=== PATIENT | male | born 1975 | race Caucasian/White ===

== ENCOUNTER 2020-10-29 07:58 | Outpatient (REF) | payer OTHER, SELFPAY ==
--- NOTE | ~2020-10-29 | XR_ITS ---
EXAMINATION: XR BOTH KNEES AP STANDING XR RIGHT KNEE, 2 VIEWS CLINICAL INFORMATION: Pain. COMPARISON: None. TECHNIQUE: Standing AP view of both knees and lateral and sunrise views of the right knee. FINDINGS: Right Knee: Mild medial and patellofemoral compartment joint space narrowing. Tricompartmental marginal osteophytes and chondrocalcinosis. No acute fracture or dislocation. Patellofemoral subchondral cystic change. Trace joint effusion. Left Knee: Mild medial compartment joint space narrowing. Medial and lateral compartment chondrocalcinosis and small marginal osteophytes. No osseous erosion. XR/XR knee RT 3V IMPRESSION: RIGHT KNEE: [id number]-dk-[id number] tricompartmental osteoarthritis and chondrocalcinosis. Trace joint effusion. LEFT KNEE: Mild medial and lateral compartment osteoarthritis and chondrocalcinosis.
--- NOTE | ~2020-10-29 | XR_ITS ---
EXAMINATION: XR BOTH KNEES AP STANDING XR RIGHT KNEE, 2 VIEWS CLINICAL INFORMATION: Pain. COMPARISON: None. TECHNIQUE: Standing AP view of both knees and lateral and sunrise views of the right knee. FINDINGS: Right Knee: Mild medial and patellofemoral compartment joint space narrowing. Tricompartmental marginal osteophytes and chondrocalcinosis. No acute fracture or dislocation. Patellofemoral subchondral cystic change. Trace joint effusion. Left Knee: Mild medial compartment joint space narrowing. Medial and lateral compartment chondrocalcinosis and small marginal osteophytes. No osseous erosion. XR/XR knee standing BI IMPRESSION: RIGHT KNEE: Atfn-yb-naemwaot tricompartmental osteoarthritis and chondrocalcinosis. Trace joint effusion. LEFT KNEE: Mild medial and lateral compartment osteoarthritis and chondrocalcinosis.
== END 2020-10-29 07:59 | disposition home or self-care (01) ==
LOC: HO.HOSX 07:58
PROVIDERS: Visit Provider Physician Assistant
DX: M11.261 Other chondrocalcinosis, right knee (principal)
CPT/HCPCS: 73562; 73565

== ENCOUNTER 2020-11-01 10:42 | Outpatient (RCR) | payer OTHER, SELFPAY ==
--- NOTE | 2020-11-01 13:42 | MHC.PT.EP ---
[facility] [place] Office [place] Office [place] Office [address] [phone] F: [phone] F: [phone] F: [phone] F: [phone] Physical Therapy Plan of Care Date of Evaluation: Date of Surgery: meniscus surgery when he was 19 Diagnosis: OA R knee Assessment: Pt is a 45/yo male referred to PT for eval/treat of OA of his R knee. Upon eval/examination, signs and symptoms presented are consistent with R knee dysfunction resulting in decreased ability and tolerance for WB activities such as standing, squatting, negotiating stairs, and ambulating for duration, decreased tolerance for sitting for duration, decreased ability to black pickler objects off of the floor, decreased ability to perform light and heavy household/recreational activities, decreased ability to perform ADLs such as dressing and putting on shoes and socks, difficulty with bed mobility, and disrupted sleep. Functional limitations mentioned above are secondary to restricted R knee ROM, decreased R knee strength, TTP of suprapatellar region and med/lat aspect of R knee, PMH of R knee meniscus surgery, gait deviation, non-pitting edema of R knee, and pain. Pt is deemed appropriate to receive skilled PT to address his physical impairments and improve his functional abilities. Frequency and Duration: The patient will be seen 1x every 2 wk for total of 3 Short Term Goals: Initiate HEP w/ evidence of compliance pt will reports pain less than 2/10 at rest Alf Goals: pt will be able to negotiate 1 flight of sitars w/ mod to little difficulty pt will be able to ambulate for 1 mile w/ mod to little difficulty pt will improve his LEFI score by 2 increment 2 JENNIFER and MCID; initial score 20/80. Treatment Plan: Modalities to reduce pain, spasms and effusion. Manual therapy to restore motion and function. Therapeutic exercise to improve strength and flexibility. Neuromuscular re-education for posture and balance. Therapeutic activities to return to functional activities of daily living. Electronically signed by: donell Huerta PT Please sign and return to therapist. Thank you for your referral.
--- NOTE | 2021-06-25 09:27 | MHC.PT.DC ---
[facility] [place] Office [place] Office [place] Office [address] Aniket Limon 140 [facility] [phone] F: [phone] F: [phone] F: [phone] F: [phone] Physical Therapy Discharge Report Diagnosis: OA R knee Date of Surgery: meniscus surgery when he was 19 Date of Evaluation: 11/01/20 Date of Discharge: 06/25/21 Treatments to Date: Cancellations to Date: No Shows to Date: Discharge Status: Patient Elected to Stop Discharge Summary: Patient evaled and never returned to PT. DC to HEP Electronically signed by: Shanthi Mak PT Please sign and return to therapist. Thank you for your referral.
== END 2021-06-25 09:27 | disposition home or self-care (01) ==
LOC: HO.PTCHIC 10:42
PROVIDERS: Visit Provider Physician Assistant
DX: M17.11 Unilateral primary osteoarthritis, right knee (principal)
CPT/HCPCS: 97110; 97161

== ENCOUNTER 2021-02-23 07:56 | Outpatient (REF) | payer OTHER, SELFPAY ==
[2021-02-23 08:42] LABS: Binax Now Covid-19 Ag Negative (Negative)
[2021-02-23 08:44] LABS: Binax Internal Control QC Valid; Binax Lot number: 9864
== END 2021-02-23 07:57 | disposition home or self-care (01) ==
LOC: HO.LAB 07:56
PROVIDERS: Visit Provider Internal Medicine
DX: Z20.822 Contact with and (suspected) exposure to COVID-19 (principal)
CPT/HCPCS: 36415; C9803

== ENCOUNTER 2024-04-26 12:32 | Outpatient (AMB) | payer OTHER, SELFPAY ==
--- NOTE | 2024-04-26 12:37 | A.OFFPC_ITS ---
Vital Signs 04/26/24 12:38 Height 5 ft 10.47 in Weight 320 lb 4 oz BMI 45.3 BP 130/78 Blood Pressure Location Lt brachial Position Sitting Respiration 20 Pulse 68 Pulse Source Pulse Oximeter Temp 99.4 F Temp Source Oral Pulse Oximetry (%) 95 Oxygen Delivery Method Room Air Intake Visit Reasons: Establish Care Intake Note: Patient is a new patient here to establish care. Transferring care from [place] [facility]. Medical records have been been requested and have been received. Medical Laboratory Scientist Required: No Accompanied by: Self / Same As Patient Allergies apple Allergy (Mild, Verified 04/26/24 13:13) Swelling naproxen Allergy (Unknown, Verified 04/26/24 13:13) stomach upset bee sting Allergy (Unknown, Uncoded 04/26/24 13:13) anaphylaxis Medication List - Last Reconciled 04/26/24 by MALLORY Noguera No Known Home Meds Tobacco use date assessed: 04/26/24 Dental Screening Dental Screen Date: 04/26/24 Did you have a dental visit in the last 12 months?: No Did you have a dental problem in the last 6 months where you did not have access to dental care?: No HPI Establish Care HPI Details Patient is a 48-year-old male presenting to establish care in order to 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 The patient c/o left hand pinky-numbness in the mornings, periodically, gets better as the days go on- might be due to some form of compression while the patient sleeps-will monitor for now. Right knee surgery (meniscus repair he was 19 years old), Reports lumps on the his body (particular in his upper and mid back) reports that he was told that they are fatty tissues. Question lypoma or dermoid cyst. reports that they does not bother him.-consider getting a getting a upper back xray to further evaluate. The patient reports that he would not want them surgical removed Medications:n/a Family HX: father Parkinson's disease, mother- neuropathy, DM, PFSH Medical History (Updated 04/26/24 @ 23:12 by MALLORY Noguera) CPAP (continuous positive airway pressure) dependence Lumps on the skin HAN (obstructive sleep apnea) Surgical History History of surgical removal of pilonidal cyst H/O lateral meniscus repair of right knee Family History Mother Diabetes Neuropathy Respiratory abnormality, unspecified Father Parkinson disease Son No problems noted. 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 1. Little interest or pleasure in doing things: not at all 2. Feeling down, depressed, or hopeless: not at all 3. Trouble falling or staying asleep, or sleeping too much: not at all 4. Feeling tired or having little energy: not at all 5. Poor appetite or overeating: not at all 6. Feeling bad about yourself - or that you are a failure or have let yourself or your family down: not at all 7. Trouble concentrating on things, such as reading the newspaper or watching television: not at all 8. Moving or speaking so slowly that other people could have noticed. Or the opposite - being so fidgety or restless that you have been moving around a lot more than usual: not at all 9. Thoughts that you would be better off or of hurting yourself in some way: not at all Total score: 0 Depression Screening Interpretation: Negative Depression Screening Done: Yes 24010 - PHQ-9 Billing: Yes Source: Developed by Drs. Raj Matson, Sindy Turk, Juan M Lemus and colleagues, with an educational tita from [employer]. Thrive Questionnaire Date Thrive assessed: 04/26/24 I am a: Patient What is your living situation today?: I have a steady place to live Within the past 12 months, did the food you bought not last and you didn't have the money to get more?: Never true Within the past 12 months, did you worry whether your food would run out before you got money to buy more?: Never true Do you have trouble paying for medicines?: No Do you have trouble getting transportation to medical appointments?: Yes Do you have trouble paying your heating and electricity bill?: No Do you have trouble taking care of your child, family member or friend?: No Do you have trouble with day-to-day activities such as bathing, preparing meals, shopping, managing finances, etc.?: No Are you currently unemployed and looking for a job?: No Are you interested in more education?: No Please select the resources that you would like help with: Transportation Currently or been in a relationship where the following occur: No concerns reported THRIVE Score: 1 AUDIT C Alcohol Use Questionnaire (AUDIT-C) 1. How often do you have a drink containing alcohol?: Monthly or less 2. How many drinks containing alcohol do you have on a typical day when you are drinking?: 1 or 2 3. How often do you have six or more drinks on one occasion?: Never Total Score: 1 DELMY-7 AMB Questionnaire DELMY-7 Date DELMY - 7 assessed: 04/26/24 Feeling nervous, anxious, or on edge: 0 = Not at all Not being able to stop or control worryin = Not at all Worrying too much about different things: 0 = Not at all Trouble relaxin = Not at all Being so restless that it is hard to sit still: 0 = Not at all Becoming easily annoyed or irritable: 0 = Not at all Feeling afraid as if something awful might happen: 0 = Not at all Total DELMY-7 score (0-4 normal; 5-9 mild; 10-14 moderate; 15-21 severe): 0 Source: Developed by Sindy Mays Kurt Kroenke and colleagues, with an educational tita from [employer]. DELMY-7 Assessment Billing DELMY-7 Assessment Tool: DELMY-7 Assessment 48299 Review of Systems Const Details: Denies chills, Denies fatigue, Denies fever(s), Denies headache(s) and Denies weakness HEENT Denies change in vision, Denies dizziness, Denies headache(s), Denies hearing loss, Denies nasal congestion, Denies sinus pain, Denies sinus pressure and Denies sore throat Card Denies chest pain, Denies lightheadedness, Denies dyspnea and Denies other (palpitations) Resp Denies cough, Denies dyspnea and Denies wheezing GI Denies abdominal pain, Denies melena, Denies hematochezia, Denies change in bowel habits, +dyspepsia( reports that it has been much better since he started using his CPAP and Denies nausea Denies hematuria and Denies dysuria Musc Denies abnormal gait, Denies myalgias, Denies arthralgias, Denies numbness and Denies tingling Skin/Breast Denies rash, Denies unusual bruising and Denies wounds Reports lumps to upper and mid back Neuro Denies abnormal gait, Denies dizziness, Denies headache(s), Denies memory loss, +numbness (left pinky in the mornings and gets better throughout the day), Denies Sensory deficit (Neuro), Denies tingling and Denies weakness Psych Denies anxiety, Denies depression and Denies memory loss Endo Denies cold intolerance, Denies fatigue, Denies heat intolerance, Denies polydipsia and Denies polyuria Yosvany/Lymph Denies easy bleeding and Denies easy bruising Aller/Immun Denies wheezing Physical exam (Primary Care) Vital Signs: Last Vital Signs Temp 99.4 F 04/26/24 12:38 Pulse 68 04/26/24 12:38 Resp 20 04/26/24 12:38 BP 130/78 04/26/24 12:38 Pulse Ox 95 04/26/24 12:38 Oxygen Delivery Method Room Air 04/26/24 12:38 BMI result Body Mass Index 45.3 Tobacco/Smoking Status: Tobacco use Status Tobacco use date assessed 04/26/24 04/26/24 12:41 Patient Tobacco Use Status Current everyday Tobacco 04/26/24 13:01 Tobacco use type Cigarette 04/26/24 13:01 e-Cigarette/Vaping Use Never Used 04/26/24 13:01 PHQ-9: PHQ-9 Score PHQ-9: Total score 0 04/26/24 13:26 Depression Screening Interpretation: Negative Thrive Assessment: Date of Thrive Assessment Date Thrive assessed 04/26/24 04/26/24 12:41 Currently or been in a relationship where the following occur: No concerns reported Const Other: General: no acute distress, well developed, alert and awake Nutritional Appearance: well nourished Orientation/consciousness: patient oriented x3 HENMT Head: Yes normocephalic and Yes atraumatic Ears: hearing grossly normal bilaterally and TM's normal bilaterally General nose exam: Normal external nose present and Normal nares present Mouth: Normal oral and palatal mucosa present and moist mucous membranesl Throat: Yes oropharynx normal Eyes Pupils: Equal, round and reactive pupils present and Pupil accommodation reflex normal EOM: EOMs intact bilaterally Neck Neck: Yes normal visual inspection, Yes no lymphadenopathy and Yes trachea midline Thyroid: Thyroid normal Carotids: no bruits Lymphatic: no lymphadenopathy noted Resp Effort & Inspection: normal respiratory effort Auscultation: clear to auscultation bilaterally Cardio Rate: regular rate Rhythm: regular rhythm Heart sounds: S1 normal heart sound present, S2 normal heart sound present, no gallops, no murmurs and no rubs GI Palpation (GI): Abdomen is soft and nontender Auscultation: normal bowel sounds General: Yes no CVA tenderness Back/Spine/Pelvis Back: no CVA tenderness Cervical Spine: cervical ROM normal and No Cervical spine tenderness Thoracic/Lumbar Spine: thoraco-lumbar ROM normal, No pain with thoraco-lumbar ROM, No thoracic spinal tenderness and No lumbar spinal tenderness Skin General: warm and dry. Normal skin color. Normal skin turgor Lesions: Lumps to upper and mid back Rashes: no rashes Trauma: no lacerations or abrasions Wounds: no wounds Nails: normal Neuro General: patient oriented x3, gait normal Cranial nerves: Yes Equal, round and reactive pupils present Cognition (Neuro): normal cognition Gait exam (Neuro): Normal gait present Extrem General: Yes normal to inspection, No edema and No calf tenderness Psych Appearance: grossly normal Affect: normal affect Attitude: cooperative Thought process: Normal thought process present Coding Level of Care Code New Pt Level 4 (48641) Diagnoses HAN (obstructive sleep apnea) G47.33 Lumps on the skin R22.9 Heartburn R12 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 Sleep study was ordered (2) Lumps on the skin: Code(s): R22.9 - Localized swelling, mass and lump, unspecified Category: Medical Plan: Bilateral upper and mid back skin lumps-reports that they have been there for a while. Reports that he was told that there are fatty tissues. He is not looking to have them removed. We will monitor for now. Consider imaging to further evaluate. 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: Code(s): S64.497A - Injury of digital nerve of left little finger, initial encounter Category: Medical Qualifiers: Encounter type: initial encounter Qualified Code(s): S64.497A - Injury of digital nerve of left little finger, initial encounter Plan: The patient c/o left hand pinky-numbness in the mornings, periodically, gets better as the days go on- might be due to some form of compression while the patient sleeps-will monitor for now Plan Patient to return in 2 months for a physical Orders: Orders Complete Blood Count Auto Diff Today G47.33 - Obstructive sleep apnea (adult) (pediatric), Z00.00 - Encounter for general adult medical examination without abnormal findings, Z99.89 - Dependence on other enabling machines and devices UA CC w/rflx Micro + Cult Today G47.33 - Obstructive sleep apnea (adult) (pediatric), Z00.00 - Encounter for general adult medical examination without abnormal findings, Z99.89 - Dependence on other enabling machines and devices Glucose Fasting Today G47.33 - Obstructive sleep apnea (adult) (pediatric), Z00.00 - Encounter for general adult medical examination without abnormal findings, Z99.89 - Dependence on other enabling machines and devices Lipid Panel Today G47.33 - Obstructive sleep apnea (adult) (pediatric), Z00.00 - Encounter for general adult medical examination without abnormal findings, Z99.89 - Dependence on other enabling machines and devices RT home sleep study Today G47.33 - Obstructive sleep apnea (adult) (pediatric), Z00.00 - Encounter for general adult medical examination without abnormal findings, Z99.89 - Dependence on other enabling machines and devices Comprehensive [place]. Panel Fast Today G47.33 - Obstructive sleep apnea (adult) (pediatric), Z00.00 - Encounter for general adult medical examination without abnormal findings, Z99.89 - Dependence on other enabling machines and devices Vitamin D 25-OH Total Today G47.33 - Obstructive sleep apnea (adult) (pediatric), Z00.00 - Encounter for general adult medical examination without abnormal findings, Z99.89 - Dependence on other enabling machines and devices TSH reflex Free T4 Today G47.33 - Obstructive sleep apnea (adult) (pediatric), Z00.00 - Encounter for general adult medical examination without abnormal findings, Z99.89 - Dependence on other enabling machines and devices
[2024-04-26 12:38] VITALS: BP 130/78; PULSE 68; RESP 20; TEMP 37.4; O2SAT 95; BMI 45.3
== END 2024-04-26 13:42 | disposition home or self-care (01) ==
DX: G47.33 Obstructive sleep apnea (adult) (pediatric) (principal); R22.9 Localized swelling, mass and lump, unspecified; R12 Heartburn; S64.497A Injury of digital nerve of left little finger, initial encounter

== ENCOUNTER → 2024-04-26 12:32 | Outpatient (BNVA) | payer OTHER, SELFPAY | DX: G47.33 Obstructive sleep apnea (adult) (pediatric) (principal); R22.9 Localized swelling, mass and lump, unspecified; R12 Heartburn; S64.497A Injury of digital nerve of left little finger, initial encounter | CPT/HCPCS: 96127; 99202 ==